=== PATIENT | male | born 1960 | race Hispanic/Latino ===

== ENCOUNTER 2021-06-14 08:11 | Outpatient (CLI) | payer BC | END 2021-06-14 08:12 | disposition home or self-care (01) | LOC: CSHMRI 08:11 | PROVIDERS: ATTEND Radiology Radiation Oncology | DX: C79.31 Secondary malignant neoplasm of brain (principal); C34.90 Malignant neoplasm of unspecified part of unspecified bronchus or lung | CPT/HCPCS: 70553 ==

== ENCOUNTER 2021-10-01 09:20 | Outpatient (CLI) | payer BC ==
[2021-10-01] MEDS ORDERED: Magnevist 469MG/ML 20 ML VIAL ONE (15:44)
== END 2021-10-01 09:21 | disposition home or self-care (01) ==
LOC: CSHMRI 09:20
PROVIDERS: ATTEND Radiology Radiation Oncology
DX: C34.90 Malignant neoplasm of unspecified part of unspecified bronchus or lung (principal); C79.31 Secondary malignant neoplasm of brain; Z92.3 Personal history of irradiation
CPT/HCPCS: 70553; A9579

== ENCOUNTER 2022-01-11 13:00 | Outpatient (CLI) | payer BC ==
[~2022-01-11 13:00] MED LIST: Magnevist 469MG/ML 20 ML VIAL ONE
== END 2022-01-11 13:01 | disposition home or self-care (01) ==
LOC: CSHMRI 13:00
PROVIDERS: ATTEND Radiology Radiation Oncology
DX: C79.31 Secondary malignant neoplasm of brain (principal); C34.90 Malignant neoplasm of unspecified part of unspecified bronchus or lung; Z92.3 Personal history of irradiation
CPT/HCPCS: 70553

== ENCOUNTER 2022-04-20 09:34 | Outpatient (CLI) | payer BC ==
[2022-04-20] MEDS ORDERED: Magnevist 469MG/ML 20 ML VIAL ONE (10:55)
== END 2022-04-20 09:35 | disposition home or self-care (01) ==
LOC: CSHMRI 09:34
PROVIDERS: ATTEND Radiology Radiation Oncology
DX: C79.31 Secondary malignant neoplasm of brain (principal); C34.90 Malignant neoplasm of unspecified part of unspecified bronchus or lung; Z92.3 Personal history of irradiation
CPT/HCPCS: 70553